=== PATIENT | female | born 1985 | race Caucasian/White ===

== ENCOUNTER 2020-05-22 13:47 | Emergency (ER) | payer SELFPAY ==
[~2020-05-22] VITALS: Ht 149.9 cm; Wt 45.4 kg
[2020-05-22 14:00] VITALS: BP 112/75
[2020-05-22] MEDS ORDERED: IBUPROFEN 600 MG TABLET PO ONE (15:30)
[2020-05-22] MEDS ORDERED: IBUPROFEN 600 MG TABLET ONE ×2 (15:39→15:41)
[2020-05-22] MEDS ORDERED: IBUP-1955 PO (17:00)
--- NOTE | 2020-05-22 17:09 | NUR ---
Patient discharged to home in stable condition. Written and verbal after care instructions given. Patient verbalizes understanding of instruction.
== END 2020-05-22 17:09 | disposition home or self-care (01) ==
LOC: ER 13:47
DX: M79.641 Pain in right hand (principal); M25.531 Pain in right wrist; W22.8XXA Striking against or struck by other objects, initial encounter; Y93.89 Activity, other specified; Y92.89 Other specified places as the place of occurrence of the external cause; Y99.8 Other external cause status
CPT/HCPCS: 73110; 73130-TC

== ENCOUNTER 2021-12-09 01:37 | Emergency (ER) | payer OTHER ==
[~2021-12-09] VITALS: Ht 152.4 cm; Wt 49.9 kg
[~2021-12-09 01:37] MED LIST: IBUP-1955 PO
[2021-12-09 02:46] VITALS: BP 141/88
[2021-12-09] MEDS ORDERED: PENICILLIN V POTASSIUM 500 MG TABLET PO ONE (03:00)
[2021-12-09] MEDS ORDERED: PENI500T PO (03:03)
[2021-12-09] MEDS ORDERED: IBUPROFEN 600 MG TABLET ONE (03:06)
[2021-12-09] MEDS ORDERED: AMOXICILLIN TRIHYDRATE 250 MG CAPSULE ONE (03:07)
[2021-12-09] MEDS: AMOXICILLIN TRIHYDRATE 500 MG CAPSULE PO ONE (03:10)
[2021-12-09] MEDS: IBUPROFEN 600 MG TABLET PO ONE (03:10)
--- NOTE | 2021-12-09 03:12 | NUR ---
Patient discharged to home in stable condition. Written and verbal after care instructions given. Patient verbalizes understanding of instruction.
== END 2021-12-09 03:12 | disposition home or self-care (01) ==
LOC: ER 01:42
DX: K04.7 Periapical abscess without sinus (principal); F17.200 Nicotine dependence, unspecified, uncomplicated; Z59.00 Homelessness unspecified; Z79.1 Long term (current) use of non-steroidal anti-inflammatories (NSAID)

== ENCOUNTER 2024-12-20 22:26 | Emergency (ER) | payer MEDICAID, OTHER ==
[~2024-12-20] VITALS: Ht 149.9 cm; Wt 45.4 kg
[~2024-12-20 22:26] MED LIST changes: +PENI500T PO
[2024-12-20 22:34] VITALS: BP 106/72; TEMP 98.2; O2SAT 98
[2024-12-20] MEDS ORDERED: ONDA4TAB5 PO (22:45)
[2024-12-20] MEDS ORDERED: ONDANSETRON HCL/PF 4 MG/2 ML VIAL ONE (22:50)
[2024-12-20] MEDS: ONDANSETRON HCL/PF 4 MG/2 ML VIAL IM ONE (23:11)
== END 2024-12-20 23:52 | disposition home or self-care (01) ==
LOC: ER 23:23
DX: R11.2 Nausea with vomiting, unspecified (principal); F15.90 Other stimulant use, unspecified, uncomplicated; F12.90 Cannabis use, unspecified, uncomplicated; F11.90 Opioid use, unspecified, uncomplicated; F17.200 Nicotine dependence, unspecified, uncomplicated; Z59.00 Homelessness unspecified
CPT/HCPCS: 99283; 96372; J2405